=== PATIENT | male | born 1985 ===

== ENCOUNTER 2017-08-31 20:21 | Emergency (ER) | payer OTHER ==
[~2017-08-31] VITALS: Ht 162.6 cm; Wt 68.0 kg
[2017-09-01 00:58] VITALS: BP 111/72
[2017-09-01 01:08] LABS: ABSOLUTE BASOPHIL COUNT 0 /CUMM (0.0-0.2); ABSOLUTE EOSINOPHIL COUNT 0 /CUMM (0.0-0.7); ABSOLUTE GRANULOCYTE CT 4.4 /CUMM (1.4-6.5); ABSOLUTE LYMPH COUNT 1.6 /CUMM (1.2-3.4); ABSOLUTE MONOCYTE COUNT 0.6 /CUMM (0.10-0.60); BASOPHIL % 0.2 % (0.0-2.0); EOSINOPHIL % 0.1 % (0-5); GRANULOCYTE % 66.1 % (42.2-75.2); HEMATOCRIT 44.5 % (42-52); MEAN CORPUSCULAR HGB 28.7 PG (27.0-31.0); MEAN CORPUSCULAR HGB CONC 34.3 G/DL (33.0-37.0); MEAN CORPUSCULAR VOLUME 83.6 FL (80.0-94.0); MEAN PLATELET VOLUME 8.9 FL (7.4-10.4); PLATELET COUNT 143 /CUMM (130-400); RBC DISTRIBUTION WIDTH 12.9 % (11.5-14.5); RED BLOOD CELL CT 5.32 /CUMM (4.70-6.10); WHITE BLOOD CELL COUNT 6.7 /CUMM (4.8-10.8)
--- NOTE | 2017-09-01 01:08 | ED GENERAL ADULT ---
History of Present Illness General Chief Complaint: General Adult Stated Complaint: SENT IN FROM URGENT CARE FOR ABD PAIN/DEHYDRATION Source: patient Exam Limitations: no limitations Vital Signs & Intake/Output Vital Signs & Intake/Output Vital Signs Date Time Temp Pulse Resp B/P B/P Pulse O2 O2 Flow FiO2 Mean Ox Delivery Rate 09/01 0058 98.5 71 20 111/72 99 Room Air 08/31 2042 99.6 87 18 116/73 98 Room Air ED Intake and Output 09/01 0000 08/31 1200 Intake Total Output Total Balance Patient 150 lb Weight Weight Reported by Patient Measurement Method Allergies Coded Allergies: No Known Allergies (08/31/17) Reconcile Medications Ondansetron (Zofran Odt) 4 MG TAB.RAPDIS 1 TAB SL TID PRN nausea Triage Note: PT FROM HOME C/O ABD PAIN THAT BEGAN 2X DAYS AGO. PT STATES HE ATE SHRIMP SUSHI ON WEDNESDAY AND HOURS LATER BEGAN TO VOMIT. +5 EPISODES OF N/V. PT DENIES DIARREHA. PT DENIES CP, SOB, ARM NUMBNESS/TINGLING. PT STATES DIZZINESS FROM DEHYDRATION, PT IS ABLE TO TOLERATE PO INTAKE WITHOUT VOMITTING. Triage Nurses Notes Reviewed? yes Onset: Gradual Duration: day(s): Timing: recent history Injury Environment: While on a trip to [place] Severity: moderate Modifying Factors: Improves With: rest. Associated Symptoms: nausea and vomiting HPI: 32-year-old gentleman in prior good health was visiting [place]. He ate at a [employer] restaurant 2 nights ago. In the morning 1 nights ago at approximately 1 AM he developed profound vomiting muscle aches. "I vomited up all the sushi that I 8 in the hotel room." He returns home that day. All day today he felt nauseous, but has not vomited. He has no fever diarrhea or rashes abdominal pain. He is otherwise well. Past History Travel History Traveled to [facility] past 21 day No Medical History Any Pertinent Medical History? see below for history Neurological: NONE EENT: NONE Cardiovascular: NONE Gastrointestinal: NONE Hepatic: NONE Renal: NONE Musculoskeletal: NONE Psychiatric: NONE Endocrine: NONE Surgical History Surgical History: none Psychosocial History What is your primary language Faroese Tobacco Use: Never used Family History Hx Contributory? No Review of Systems Review of Systems Constitutional: Denies: see HPI. Physical Exam Physical Exam General Appearance: well developed/nourished, mild distress Comments: Review of Systems - except as otherwise noted in HPI Review of Systems Constitutional:no symptoms. EENTM:no symptoms. Respiratory:no symptoms. Cardiovascular:no symptoms. GI:no symptoms. Genitourinary:no symptoms. Musculoskeletal:no symptoms. Skin:no symptoms. Neurological/Psychological:no symptoms. Hematologic/Endocrine:no symptoms. Immunologic/Allergic:no symptoms. All Other Systems: Reviewed and Negative Physical Exam Physical Exam General Appearance: well developed/nourished, mild distress Head: atraumatic, normal appearance Eyes: Bilateral: normal appearance. Ears, Nose, Throat: normal pharynx, normal ENT inspection Neck: normal inspection, supple, full range of motion Respiratory: normal breath sounds, chest non-tender, no respiratory distress, quiet respiration, lungs clear Cardiovascular: regular rate/rhythm Gastrointestinal: normal bowel sounds, soft, non-tender, no organomegaly Back: normal inspection, normal range of motion Extremities: normal inspection, normal capillary refill, normal range of motion, no edema Neurologic/Psych: no motor/sensory deficits, awake, alert, oriented x 3 Skin: intact, normal color, warm/dry Core Measures ACS in differential dx? No CVA/TIA Diagnosis: No Sepsis Present: No Sepsis Focused Exam Completed? No Progress Differential Diagnoses I considered the following diagnoses in my evaluation of the patient: Food poisoning versus gastroenteritis versus other Plan of Care: Orders Procedure Date/time Status LIPASE 08/31 2321 Complete HEPATIC FUNCTION PANEL 08/31 2321 Complete CBC WITHOUT DIFFERENTIAL 08/31 2321 Complete BASIC METABOLIC PANEL 08/31 2321 Complete AMYLASE 08/31 2321 Complete Laboratory Tests 09/01/17 0040: Anion Gap 13, Estimated GFR > 60, BUN/Creatinine Ratio 17.5, Glucose 113 H, Calcium 8.9, Total Bilirubin 1.0, Direct Bilirubin 0.2, AST 51, ALT 72, Alkaline Phosphatase 50, Total Protein 7.3, Albumin 4.1, Amylase 38, Lipase 66, CBC w Diff NO MAN DIFF REQ, RBC 5.32, MCV 83.6, MCH 28.7, MCHC 34.3, RDW 12.9, MPV 8.9 , Gran % 66.1, Lymphocytes % 24.4, Monocytes % 9.2, Eosinophils % 0.1, Basophils % 0.2, Absolute Granulocytes 4.4, Absolute Lymphocytes 1.6, Absolute Monocytes 0.6, Absolute Eosinophils 0, Absolute Basophils 0 Initial ED EKG: none Departure Departure Disposition: HOME OR SELF CARE Condition: Stable Clinical Impression Primary Impression: Food poisoning Secondary Impressions: Nausea and vomiting Referrals: Patient Has No Primary Care Dr (PCP/Family) Departure Forms: Customer Survey General Discharge Information Prescriptions: Current Visit Scripts Ondansetron (Zofran Odt) 1 TAB SL TID PRN nausea #10 TAB Comments Patient has no tenderness on abdominal exam. Labs are benign. Patient did not vomit while in the ED. Patient encouraged to take gentleman fluids. He received 2 L normal saline. Close follow-up and advised Critical Care Note Critical Care Note Critical Care Time: non-applicable
[2017-09-01] MEDS ORDERED: ZOFRAN ODT4 M1 SL (01:44)
== END 2017-09-01 01:56 ==
LOC: ERH 20:21
PROVIDERS: Pediatrics
DX: T62.91XA Toxic effect of unspecified noxious substance eaten as food, accidental (unintentional), initial encounter (principal)
CPT/HCPCS: 96361; 96374; J2405